=== PATIENT | female | born 1985 | race Caucasian/White ===

== ENCOUNTER 2018-05-24 09:40 | Emergency (ER) | payer OTHER ==
[2018-05-24 10:10] VITALS: BP 123/78
[2018-05-24] MEDS ORDERED: LIDOCAINE 2%-EPI 1:100000 20 ML MDV SUBQ STA (10:53)
--- NOTE | 2018-05-24 11:38 | ED Physician Documentation ---
History of Present Illness - Stated complaint Stated Complaint: BUMP ON BACK - Chief complaint Chief Complaint: General - History obtained from History obtained from: Patient - History of Present Illness Timing: How many days ago (Several) Pain level max: 5 Pain level now: 3 - Additonal information Additional information: 32-year-old female with recurrent pilonidal cyst, states it started several days ago and has steadily worsened. Has been drained twice, 8 years ago and then 4 years ago. No fevers. Has not seen a surgeon. Nothing makes it better. Worse with palpation Review of Systems Constitutional: denies: Fever, Chills GI: denies: Vomiting Skin: denies: Rash Musculoskeletal: denies: Neck pain, Back pain Neurologic: denies: Headache PD PAST MEDICAL HISTORY - Past Medical History Past Medical History: No - Past Surgical History Past Surgical History: No - Present Medications Home Medications: Ambulatory Orders Medication Instructions Recorded Confirmed Cephalexin [Keflex] 500 mg PO Q6H #28 capsule 05/24/18 Sulfamethox/Trimeth 800/160 1 each PO BID #14 tablet 05/24/18 [Bactrim Ds 800/160] - Allergies Allergies/Adverse Reactions: Allergies Allergy/AdvReac Type Severity Reaction Status Date / Time No Known Drug Allergies Allergy Verified 05/24/18 10:10 - Living Situation Living Situation: reports: With family Living Arrangement: reports: At home - Social History Does the pt smoke?: No Does the pt have substance abuse?: No PD ED PE NORMAL - Vitals Vital signs reviewed: Yes - General General: Alert and oriented X 3, No acute distress - HEENT HEENT: Moist mucous membranes - Neck Neck: Supple, no meningeal sign - Derm Derm: Warm and dry, Other (2 x 2 centimeter indurated fluctuant abscess just to the right of the gluteal fold) - Extremities Extremities: No edema - Neuro Neuro: Alert and oriented X 3 - Psych Psych: Normal mood, Normal affect Results - Vitals Vitals: Vital Signs - 24 hr 05/24/18 10:08 Temperature 37 C Heart Rate 86 Respiratory 18 Rate Blood Pressure 123/78 O2 Saturation 100 Oxygen O2 Source Room air Procedures - Abscess I&D (location) Right gluteal cleft Preparation: Alcohol, Lidocaine 2 %, With epi Incision: Incised with scalpel, Purulent drainage, Irrigated, Packed, Culture obtained Other: Pt tolerated well, Dressing applied, Antibiotic prescribed PD MEDICAL DECISION MAKING - ED course Complexity details: considered differential, d/w patient ED course: Patient with an infected pilonidal abscess. Incised and drained. Tolerated well. Will place on antibiotics for home. Patient was counseled that she should follow-up with a surgeon to discuss removal of the fistula tract. Patient counseled regarding signs and symptoms for which I believe and urgent re-evaluation would be necessary. Patient with good understanding of and agreement to plan and is comfortable going home at this time This document was made in part using voice recognition software. While efforts are made to proofread this document, sound alike and grammatical errors may occur. Departure - Departure Disposition: Home, Self Care Clinical Impression: Pilonidal abscess Condition: Good Instructions: ED Cyst Pilonidal Infected IandD Follow-Up: ANDREW Huertas [Provider Group] - Within 1 week Prescriptions: Cephalexin [Keflex] 500 mg PO Q6H #28 capsule Sulfamethox/Trimeth 800/160 [Bactrim Ds 800/160] 1 each PO BID #14 tablet Comments: Take all antibiotics until gone. Return if you worsen. Follow-up with your doctor in 2-3 days for wound check. You should be referred to a general surgeon to discuss removal of the fistula. Discharge Date/Time: 05/24/18 11:53
== END 2018-05-24 11:53 | disposition home or self-care (01) ==
LOC: ED 09:40
DX: L02.91 Cutaneous abscess, unspecified (principal)
CPT/HCPCS: 10080; 87070; 87077; 87181; 87205; 99283

== ENCOUNTER 2019-09-07 13:57 | Emergency (ER) | payer OTHER ==
[2019-09-07 14:04] VITALS: BP 140/81
[2019-09-07] MEDS ORDERED: BUFFERED LIDOCAINE 10 ML SYRINGE SUBQ STA (14:23)
--- NOTE | 2019-09-07 14:24 | ED Physician Documentation ---
PD HPI WOUND RECHECK - Stated complaint Stated Complaint: WOUND ON BACK - Chief complaint Chief Complaint: Wound - Histroy obtained from History obtained from: Patient (She has a recurrent pilonidal cyst that has become inflamed and painful over the last 3 days or so. No fevers. No possibility of .) Review of Systems Constitutional: denies: Fever, Chills : denies: Now EGA Skin: reports: Reviewed and negative Musculoskeletal: denies: Neck pain PD PAST MEDICAL HISTORY - Past Surgical History Past Surgical History: No - Present Medications Home Medications: Ambulatory Orders Medication Instructions Recorded Confirmed Cephalexin [Keflex] 500 mg PO Q6H #28 capsule 05/24/18 Sulfamethox/Trimeth 800/160 1 each PO BID #14 tablet 05/24/18 [Bactrim Ds 800/160] Amox/Clav 875/125 [Augmentin] 1 each PO Q12H #20 tablet 09/07/19 - Allergies Allergies/Adverse Reactions: Allergies Allergy/AdvReac Type Severity Reaction Status Date / Time No Known Drug Allergies Allergy Verified 05/24/18 10:10 - Social History Does the pt smoke?: No Does the pt have substance abuse?: No PD ED PE NORMAL - Vitals Vital signs reviewed: Yes - General General: Alert and oriented X 3, No acute distress - Derm Derm: Other (She has a small pointed pilonidal cyst at the top right part of the gluteal cleft) - Neuro Neuro: Alert and oriented X 3, Normal speech Results - Vitals Vitals: Vital Signs - 24 hr 09/07/19 14:01 Temperature 36.5 C Heart Rate 105 H Respiratory 16 Rate Blood Pressure 140/81 H O2 Saturation 99 Oxygen O2 Source Room air Procedures - Abscess I&D (location) Pilonidal Preparation: Lidocaine 1% Incision: Incised with scalpel, Purulent drainage, Loculations broken, Packed (with 1/4 inch packing), Culture obtained Other: Pt tolerated well, Dressing applied Departure - Departure Disposition: Home, Self Care Clinical Impression: Pilonidal abscess Condition: Good Record reviewed to determine appropriate education?: Yes Instructions: ED Cyst Pilonidal Infected IandD Prescriptions: Amox/Clav 875/125 [Augmentin] 1 each PO Q12H #20 tablet Comments: Remove packing in 2 days. As discussed, I expect this to return, recommend following up with a general surgeon for wide excision when it is not infected. Return if worse.
== END 2019-09-07 14:50 | disposition home or self-care (01) ==
LOC: ED 13:57
DX: L05.01 Pilonidal cyst with abscess (principal)
CPT/HCPCS: 10081